=== PATIENT | male | born 1985 | race African-American/Black ===

== ENCOUNTER 2017-07-08 19:12 | Emergency (ER) | payer SELFPAY ==
[~2017-07-08] VITALS: Ht 167.6 cm; Wt 65.0 kg
[2017-07-08 20:08] LABS: EOSINOPHIL (%) 0 % (0-5); HEMATOCRIT 39.7 % (38.0-50.0); IMMATURE GRANULOCYTE (%) 0.3 % (0.0-0.7); INSTRUMENT ABS NEUTROPHIL CT 4.2 K/uL; LYMPHOCYTE COUNT 1.4 K/uL (1.0-2.8); MCHC 33.5 G/DL (30.0-36.0); MCV 95.4 FL (86-99); MEAN PLAT.VOLUME 11.7 uM^3 (9.0-12.4); MONOCYTE (%) 7.7 % (3-12); MONOCYTE COUNT 0.5 K/uL (0-0.8); NEUTROPHIL (%) 68.5 % (45-76); NEUTROPHIL COUNT 4.2 K/uL (1.8-6.4); PLATELET COUNT 228 K/uL (156-360); RBC DIS.WIDTH-CV 11.5 % (11.8-14.6); RBC DIS.WIDTH-SD 40.4 % (39-53); RED BLOOD COUNT 4.16 M/uL (4.00-5.50); WHITE BLOOD COUNT 6.1 K/uL (4.1-10.2)
[2017-07-08 20:18] LABS: CHLORIDE 108 mEq/L (99-109); POTASSIUM 4.2 mEq/L (3.7-5.4); SODIUM 140 mEq/L (136-147)
[2017-07-08 20:20] LABS: GLUCOSE 80 mg/dL (70-99)
[2017-07-08 20:21] LABS: ANION GAP 7 MEQ/L (2-14)
[2017-07-08 20:23] LABS: SERUM ETHYL ALCOHOL 21 mg/dL
[2017-07-08 20:25] LABS: UREA NITROGEN (BUN) 16 mg/dL (9-23)
[2017-07-08 20:36] LABS: GFR ESTIMATE (CALCULATED) > 59 mL/min/
[2017-07-08 22:35] LABS: ADD MEDTOX COMMENT Y; AMPHETAMINE NEGATIVE (500 ng/mL); BARBITURATES NEGATIVE (200 ng/mL); BENZODIAZEPINES NEGATIVE (150 ng/mL); COCAINE NEGATIVE (150 ng/mL); INTERNAL CONTROLS VALID? YES; METHADONE NEGATIVE (200 ng/mL); METHAMPHETAMINE NEGATIVE (500 ng/mL); OPIATES (MORPHINE) NEGATIVE (100 ng/mL); OXYCODONE NEGATIVE (100 ng/mL); PHENCYCLIDINE PRESUMPTIVE POSITIVE (25 ng/mL); PROPOXYPHENE NEGATIVE (300 ng/mL); THC CANNABINOIDS NEGATIVE (50 ng/mL); TRICYCLIC ANTIDEPRESSANTS NEGATIVE (300 ng/mL)
[2017-07-09 05:21] VITALS: BP 105/75
== END 2017-07-09 05:32 | disposition home or self-care (01) ==
LOC: EME 19:12
PROVIDERS: Emergency Medicine
DX: F33.9 Major depressive disorder, recurrent, unspecified (principal); F16.90 Hallucinogen use, unspecified, uncomplicated; Z73.3 Stress, not elsewhere classified; F17.200 Nicotine dependence, unspecified, uncomplicated
CPT/HCPCS: 80048; 84999; 85025; 90839; 99281; 99285; G0480

== ENCOUNTER 2017-07-10 10:18 | Inpatient (IN) | payer OTHER ==
[~2017-07-10] VITALS: Ht 167.6 cm; Wt 65.3 kg
[2017-07-10 11:00] LABS: EOSINOPHIL (%) 0 % (0-5); HEMATOCRIT 38.4 % (38.0-50.0); IMMATURE GRANULOCYTE (%) 0.3 % (0.0-0.7); INSTRUMENT ABS NEUTROPHIL CT 3.6 K/uL; LYMPHOCYTE COUNT 2.3 K/uL (1.0-2.8); MCH 31.9 PG (29.0-34.0); MCHC 34.1 G/DL (30.0-36.0); MCV 93.4 FL (86-99); MEAN PLAT.VOLUME 11.7 uM^3 (9.0-12.4); MONOCYTE (%) 9.6 % (3-12); MONOCYTE COUNT 0.6 K/uL (0-0.8); NEUTROPHIL COUNT 3.6 K/uL (1.8-6.4); PLATELET COUNT 234 K/uL (156-360); RBC DIS.WIDTH-CV 11.3 % (11.8-14.6); RED BLOOD COUNT 4.11 M/uL (4.00-5.50); WHITE BLOOD COUNT 6.6 K/uL (4.1-10.2)
[2017-07-10 11:10] LABS: CHLORIDE 104 mEq/L (99-109); POTASSIUM 3.5 mEq/L (3.7-5.4); SODIUM 139 mEq/L (136-147)
[2017-07-10 11:14] LABS: ANION GAP 10 MEQ/L (2-14); GLUCOSE 145 mg/dL (70-99); TOTAL BILIRUBIN 0.6 mg/dL (0.0-1.0)
[2017-07-10 11:16] LABS: SERUM ETHYL ALCOHOL < 10 mg/dL
[2017-07-10 11:17] LABS: ALKALINE PHOSPHATASE 99 IU/L (3-129); GFR ESTIMATE (CALCULATED) > 59 mL/min/
[2017-07-10 11:18] LABS: DIRECT BILIRUBIN 0.2 mg/dL (0.0-0.3)
[2017-07-10 11:19] LABS: UREA NITROGEN (BUN) 23 mg/dL (9-23)
[2017-07-10 11:20] LABS: SALICYLATE < 5.0 MG/DL (15-30)
[2017-07-10 11:48] LABS: ADD MIUA? YES; BILIRUBIN NEGATIVE; BLOOD NEGATIVE; COLOR YELLOW ((YELLOW)); GLUCOSE (STRIP) NEGATIVE; KETONES 5; LEUKOCYTES NEGATIVE; NITRITE NEGATIVE; PROTEIN (STRIP) 100; SPECIFIC GRAVITY 1.032 (1.000-1.030); UROBILINOGEN 0.2 MG/DL (0.2-1.0)
[2017-07-10 11:56] LABS: BACTERIA RARE /HPF; CALCIUM OXALATE CRYSTALS 3+ /HPF; EPITHELIAL CELLS RARE /HPF; MUCUS 3+ /LPF; RED BLOOD CELLS NONE SEEN /HPF (0-5); WHITE BLOOD CELLS 0-5 /HPF (0-5)
[2017-07-10 11:57] LABS: AMPHETAMINE NEGATIVE (500 ng/mL); BARBITURATES NEGATIVE (200 ng/mL); BENZODIAZEPINES NEGATIVE (150 ng/mL); COCAINE NEGATIVE (150 ng/mL); INTERNAL CONTROLS VALID? YES; METHADONE NEGATIVE (200 ng/mL); METHAMPHETAMINE NEGATIVE (500 ng/mL); OPIATES (MORPHINE) NEGATIVE (100 ng/mL); OXYCODONE NEGATIVE (100 ng/mL); PHENCYCLIDINE PRESUMPTIVE POSITIVE (25 ng/mL); PROPOXYPHENE NEGATIVE (300 ng/mL); THC CANNABINOIDS NEGATIVE (50 ng/mL); TRICYCLIC ANTIDEPRESSANTS NEGATIVE (300 ng/mL)
[2017-07-10 11:58] LABS: ADD MEDTOX COMMENT Y
[2017-07-10 14:18] VITALS: BP 126/82
[2017-07-10 14:20] VITALS: BP 126/82
[2017-07-11 07:39] VITALS: BP 122/68
[2017-07-11 15:15] VITALS: BP 146/85
[2017-07-12 05:50] LABS: POINT-OF-CARE METER ID UU14188576; POINT-OF-CARE USER ID ENVTLS63
[2017-07-12 07:52] VITALS: BP 94/59
[2017-07-12 15:18] VITALS: BP 120/70
[2017-07-13 07:29] VITALS: BP 113/70
[2017-07-13 15:21] VITALS: BP 125/64
[2017-07-14 07:47] VITALS: BP 106/63
[2017-07-14] MEDS ORDERED: ZOLOFT100 MG PO (09:08)
[2017-07-14] MEDS ORDERED: QUETIAPINE FUMA50 MG PO (09:08)
[2017-07-14] MEDS ORDERED: B-1100 MG PO (09:14)
[2017-07-14] MEDS ORDERED: FOLIC ACID1 MG PO (09:14)
== END 2017-07-14 11:35 | disposition home or self-care (01) | DRG 885 ==
LOC: EME 10:18 → EDOF 13:12 → 1WEST 13:12 → ENRESERV 14:33 → 1WEST 14:34
PROVIDERS: Emergency Medicine; Psychiatry & Neurology Psychiatry
DX: F33.2 Major depressive disorder, recurrent severe without psychotic features (principal); R45.851 Suicidal ideations; F16.150 Hallucinogen abuse with hallucinogen-induced psychotic disorder with delusions; F10.20 Alcohol dependence, uncomplicated; F17.210 Nicotine dependence, cigarettes, uncomplicated; Z59.0 Homelessness; F41.9 Anxiety disorder, unspecified
CPT/HCPCS: 80048; 80076; 81003; 82948; 84999; 85025; 90839; 97150 GO; 97165 GO; 97530 GO; 99281; 99284; G0480

== ENCOUNTER 2017-07-16 19:12 | Inpatient (IN) | payer OTHER ==
[~2017-07-16] VITALS: Ht 165.1 cm; Wt 67.6 kg
[~2017-07-16 19:12] MED LIST: B-1100 MG PO; FOLIC ACID1 MG PO; QUETIAPINE FUMA50 MG PO; ZOLOFT100 MG PO
[2017-07-16 20:21] LABS: HEMATOCRIT 36.1 % (38.0-50.0); MCH 32.1 PG (29.0-34.0); MCHC 33.5 G/DL (30.0-36.0); MCV 95.8 FL (86-99); RBC DIS.WIDTH-CV 11.7 % (11.8-14.6); RBC DIS.WIDTH-SD 41.2 % (39-53); RED BLOOD COUNT 3.77 M/uL (4.00-5.50); WHITE BLOOD COUNT 5.6 K/uL (4.1-10.2)
[2017-07-16 20:35] LABS: CHLORIDE 106 mEq/L (99-109); POTASSIUM 3.7 mEq/L (3.7-5.4); SODIUM 139 mEq/L (136-147)
[2017-07-16 20:36] LABS: GLUCOSE 114 mg/dL (70-99)
[2017-07-16 20:38] LABS: ANION GAP 8 MEQ/L (2-14)
[2017-07-16 20:39] LABS: SERUM ETHYL ALCOHOL < 10 mg/dL
[2017-07-16 20:40] LABS: GFR ESTIMATE (CALCULATED) > 59 mL/min/
[2017-07-16 20:42] LABS: UREA NITROGEN (BUN) 20 mg/dL (9-23)
[2017-07-16 20:43] LABS: SALICYLATE < 5.0 MG/DL (15-30)
[2017-07-16 21:26] LABS: PLAT.SUFFICIENCY ADEQUATE; PLATELET CLUMPS PRESENT - PLATELET COUNT APPEARS ADQ.; PLATELET COUNT 202 K/uL (156-360)
[2017-07-16] MEDS ORDERED: FOLIC ACID1 MG PO (22:50)
[2017-07-16] MEDS ORDERED: ZOLOFT100 MG PO (22:50)
[2017-07-16] MEDS ORDERED: B-1100 MG PO (22:50)
[2017-07-17 07:32] VITALS: BP 93/55
[2017-07-17 15:29] VITALS: BP 138/92
[2017-07-18 06:52] VITALS: BP 124/70
[2017-07-18 15:26] VITALS: BP 116/69
[2017-07-19 07:45] VITALS: BP 108/55
[2017-07-19 14:58] VITALS: BP 108/59
[2017-07-20 07:54] VITALS: BP 89/48
[2017-07-20 12:36] VITALS: BP 114/70
[2017-07-20] MEDS ORDERED: QUETIAPINE FUMA50 MG PO (13:00)
[2017-07-20] MEDS ORDERED: ZOLOFT100 MG PO (13:00)
== END 2017-07-20 13:53 | disposition home or self-care (01) | DRG 885 ==
LOC: EME 19:12 → EDOF 07-17 00:06 → 1WEST 07-17 00:06 → ENRESERV 07-17 00:17 → 1WEST 07-17 00:52
PROVIDERS: Emergency Medicine
DX: F33.1 Major depressive disorder, recurrent, moderate (principal); R45.851 Suicidal ideations; F43.21 Adjustment disorder with depressed mood; F16.10 Hallucinogen abuse, uncomplicated; F19.94 Other psychoactive substance use, unspecified with psychoactive substance-induced mood disorder; F10.20 Alcohol dependence, uncomplicated; Z76.5 Malingerer [conscious simulation]
CPT/HCPCS: 80048; 85027; 90839; 97150 GO; 99281; 99285; G0480

== ENCOUNTER 2017-08-23 14:18 | Emergency (ER) | payer OTHER ==
[~2017-08-23] VITALS: Ht 157.5 cm; Wt 59.0 kg
[2017-08-23 15:04] LABS: BASOPHIL (%) 0.3 % (0-1); EOSINOPHIL (%) 0 % (0-5); HEMATOCRIT 41.7 % (38.0-50.0); HEMOGLOBIN 14.2 G/DL (12.5-16.6); IMMATURE GRANULOCYTE (%) 0.6 % (0.0-0.7); LYMPHOCYTE (%) 27.1 % (15-42); LYMPHOCYTE COUNT 1.9 K/uL (1.0-2.8); MCH 31.6 PG (29.0-34.0); MCHC 34.1 G/DL (30.0-36.0); MCV 92.9 FL (86-99); MONOCYTE (%) 7.3 % (3-12); MONOCYTE COUNT 0.5 K/uL (0-0.8); NEUTROPHIL (%) 64.7 % (45-76); NEUTROPHIL COUNT 4.5 K/uL (1.8-6.4); PLATELET COUNT 249 K/uL (156-360); RBC DIS.WIDTH-CV 11.8 % (11.8-14.6); RBC DIS.WIDTH-SD 40.1 % (39-53); RED BLOOD COUNT 4.49 M/uL (4.00-5.50)
[2017-08-23 15:12] LABS: ALBUMIN 4.4 g/dL (3.2-4.8); CHLORIDE 105 mEq/L (99-109); POTASSIUM 3.3 mEq/L (3.7-5.4); SODIUM 139 mEq/L (136-147)
[2017-08-23 15:15] LABS: GLUCOSE 91 mg/dL (70-99); TOTAL PROTEIN 7.9 g/dL (6.4-8.3)
[2017-08-23 15:16] LABS: TOTAL BILIRUBIN 0.7 mg/dL (0.0-1.0)
[2017-08-23 15:17] LABS: SERUM ETHYL ALCOHOL 176 mg/dL
[2017-08-23 15:18] LABS: CREATININE 0.8 mg/dL (0.6-1.3); GFR ESTIMATE (CALCULATED) > 59 mL/min/ (58.99-99999)
[2017-08-23 15:19] LABS: ALKALINE PHOSPHATASE 104 IU/L (3-129)
[2017-08-23 15:20] LABS: AST (GOT) 20 IU/L (2-34); UREA NITROGEN (BUN) 12 mg/dL (9-23)
[2017-08-23 15:22] LABS: ACETAMINOPHEN (TYLENOL) < 10 mcg/mL (10-30); ALT (GPT) 18 IU/L (3-49); CREATINE KINASE 259 IU/L (1-294); SALICYLATE < 5.0 MG/DL (15-30); TOTAL CK 259 IU/L (1-294)
[2017-08-23 15:28] LABS: CKMB RELATIVE INDEX 1.2 (0.0-3.9)
[2017-08-23 16:50] LABS: APPEARANCE CLEAR ((CLEAR)); BILIRUBIN NEGATIVE; BLOOD SMALL; COLOR STRAW ((YELLOW)); GLUCOSE (STRIP) NEGATIVE; KETONES NEGATIVE; LEUKOCYTES NEGATIVE; NITRITE NEGATIVE; PROTEIN (STRIP) NEGATIVE; SPECIFIC GRAVITY 1.004 (1.000-1.030); UROBILINOGEN 0.2 MG/DL (0.2-1.0)
[2017-08-23 16:56] LABS: BACTERIA NONE SEEN /HPF; EPITHELIAL CELLS RARE /HPF; MUCUS TRACE /LPF; RED BLOOD CELLS 0-5 /HPF (0-5); UCUL ADDED? NO; WHITE BLOOD CELLS 0-5 /HPF (0-5)
[2017-08-23 17:13] LABS: AMPHETAMINE NEGATIVE (500 ng/mL); BARBITURATES NEGATIVE (200 ng/mL); BENZODIAZEPINES NEGATIVE (150 ng/mL); BUPRENORPHINE NEGATIVE (10 ng/mL); COCAINE NEGATIVE (150 ng/mL); METHADONE NEGATIVE (200 ng/mL); METHAMPHETAMINE NEGATIVE (500 ng/mL); OPIATES (MORPHINE) NEGATIVE (100 ng/mL); OXYCODONE NEGATIVE (100 ng/mL); PHENCYCLIDINE PRESUMPTIVE POSITIVE (25 ng/mL); PROPOXYPHENE NEGATIVE (300 ng/mL); THC CANNABINOIDS NEGATIVE (50 ng/mL); TRICYCLIC ANTIDEPRESSANTS NEGATIVE (300 ng/mL)
[2017-08-24 00:34] VITALS: BP 110/65
== END 2017-08-24 00:33 | disposition home or self-care (01) ==
LOC: EME 14:18
PROVIDERS: Emergency Medicine
DX: T50.991A Poisoning by other drugs, medicaments and biological substances, accidental (unintentional), initial encounter (principal); F10.129 Alcohol abuse with intoxication, unspecified; Y90.6 Blood alcohol level of 120-199 mg/100 ml; R41.82 Altered mental status, unspecified; F32.9 Major depressive disorder, single episode, unspecified; F17.200 Nicotine dependence, unspecified, uncomplicated
CPT/HCPCS: 70450; 80053; 81003; 82550; 82553; 84999; 85025; 99281; 99285; G0480; J7030

== ENCOUNTER 2017-10-07 19:44 | Emergency (ER) | payer OTHER ==
[~2017-10-07] VITALS: Ht 165.1 cm; Wt 70.5 kg
[2017-10-07 21:01] LABS: BASOPHIL (%) 0.4 % (0-1); EOSINOPHIL (%) 0.2 % (0-5); HEMATOCRIT 34.8 % (38.0-50.0); HEMOGLOBIN 11.7 G/DL (12.5-16.6); IMMATURE GRANULOCYTE (%) 0.2 % (0.0-0.7); LYMPHOCYTE (%) 18.7 % (15-42); LYMPHOCYTE COUNT 0.9 K/uL (1.0-2.8); MCH 31.9 PG (29.0-34.0); MCHC 33.6 G/DL (30.0-36.0); MCV 94.8 FL (86-99); MONOCYTE (%) 8.4 % (3-12); MONOCYTE COUNT 0.4 K/uL (0-0.8); NEUTROPHIL (%) 72.1 % (45-76); NEUTROPHIL COUNT 3.5 K/uL (1.8-6.4); PLATELET COUNT 197 K/uL (156-360); RBC DIS.WIDTH-CV 11.7 % (11.8-14.6); RBC DIS.WIDTH-SD 40.4 % (39-53); RED BLOOD COUNT 3.67 M/uL (4.00-5.50); WHITE BLOOD COUNT 4.9 K/uL (4.1-10.2)
[2017-10-07 21:43] LABS: CHLORIDE 108 mEq/L (99-109); POTASSIUM 3.8 mEq/L (3.7-5.4); SODIUM 141 mEq/L (136-147)
[2017-10-07 21:45] LABS: GLUCOSE 76 mg/dL (70-99)
[2017-10-07 21:48] LABS: SERUM ETHYL ALCOHOL < 10 mg/dL
[2017-10-07 21:49] LABS: GFR ESTIMATE (CALCULATED) > 59 mL/min/ (58.99-99999)
[2017-10-07 21:50] LABS: UREA NITROGEN (BUN) 14 mg/dL (9-23)
[2017-10-07 21:51] LABS: CREATINE KINASE 389 IU/L (1-294)
[2017-10-08 00:29] VITALS: BP 120/62
== END 2017-10-08 00:35 ==
LOC: EME 19:44
PROVIDERS: Emergency Medicine
DX: F19.10 Other psychoactive substance abuse, uncomplicated (principal); F32.9 Major depressive disorder, single episode, unspecified; F17.200 Nicotine dependence, unspecified, uncomplicated; Z87.898 Personal history of other specified conditions
CPT/HCPCS: 70450; 80048; 82550; 85025; 99281; 99285; G0480; J1630; J2060; J7030